=== PATIENT | male | born 1970 | race Hispanic/Latino ===

== ENCOUNTER 2019-04-02 16:16 | Emergency (ER) | payer BC ==
[2019-04-02] MEDS ORDERED: ACETAMINOPHEN 325 MG TABLET ONE (16:56)
[2019-04-02] MEDS ORDERED: IBUPROFEN 400 MG TAB ONE (16:56)
--- NOTE | 2019-04-02 17:20 | RAD REPORT ---
EXAM DESCRIPTION: RAD - Ankle Left 3 View - 04/02/2019 5:04 pm CLINICAL HISTORY: Ankle pain, twisting injury COMPARISON: None. FINDINGS: No fracture, dislocation or periosteal reaction. No joint effusion seen. No joint space na rrowing. Mild lateral soft tissue swelling. IMPRESSION: Mild soft tissue swelling with no fracture.
--- NOTE | 2019-04-02 17:21 | RAD REPORT ---
EXAM DESCRIPTION: RAD - Foot Left 3 View - 04/02/2019 5:04 pm CLINICAL HISTORY: Foot pain, twisting injury COMPARISON: None. FINDINGS: No fracture, dislocation or periosteal reaction. No acute or destructive bony process. Mo derate degenerative change involves the first MTP joint where there is joint space narrowing, scleros is and minimal marginal spurring. No air or foreign body in the soft tissues. IMPRESSION: No fracture or acute finding. 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
--- NOTE | 2019-04-02 17:41 | EDPHYS ---
Physician Documentation [facility] Name: Bob Culp Age: 49 yrs Sex: Male : 1970 Arrival Date: 04/02/2019 Time: 16:19 Bed 30 Private MD: ED Physician Sam Russell HPI: 04/02 16:40 This 49 yrs old Male presents to ER via Ambulatory with complaints of Foot cp Pain. 16:40 The patient presents with pain, that is acute, swelling, tenderness. cp 16:40 The complaints affect the left lateral ankle, lateral aspect of left foot and dorsum of cp left foot. 16:40 Context: resulted from twisting of the extremity, while walking, the patient can fully cp bear weight, the patient is able to ambulate, with mild difficulty. Onset: The symptoms/episode began/occurred 3 day(s) ago. 16:40 Associated signs and symptoms: Pertinent positives: ecchymosis, of the left foot, cp Pertinent negatives calf tenderness, numbness. Historical: - Allergies: 16:23 No Known Allergies; aj - Home Meds: 16:23 valsartan-hydrochlorothiazide 160-12.5 mg oral tab 1 tab once daily [Active]; aj metoprolol tartrate 50 mg Oral tab [Active]; - PMHx: 16:23 Hypertension; aj - PSHx: 16:23 None; aj - Immunization history:: Adult Immunizations up to date. - Social history:: Smoking status: Patient/guardian denies using tobacco. - Ebola Screening: : Patient negative for fever greater than or equal to 101.5 degrees Fahrenheit, and additional compatible Ebola Virus Disease symptoms Patient denies exposure to infectious person Patient denies travel to an Ebola-affected area in the 21 days before illness onset No symptoms or risks identified at this time. ROS: 16:50 Constitutional: Negative for body aches, chills, fever, poor PO intake. cp 16:50 Eyes: Negative for injury, pain, redness, and discharge. cp 16:50 ENT: Negative for drainage from ear(s), ear pain, sore throat, difficulty swallowing, difficulty handling secretions. 16:50 Cardiovascular: Negative for chest pain, palpitations. 16:50 Respiratory: Negative for cough, shortness of breath, wheezing. 16:50 Abdomen/GI: Negative for abdominal pain, nausea, vomiting, and diarrhea. 16:50 MS/extremity: Positive for pain, swelling, tenderness, of the left ankle and left ffot, Negative for deformity, paresthesias. 16:50 Skin: Negative for cellulitis. 16:50 All other systems are negative. Exam: 17:00 Constitutional: The patient appears in no acute distress, alert, awake, well developed, cp well nourished. 17:00 Head/Face: Normocephalic, atraumatic. cp 17:00 Eyes: Periorbital structures: appear normal, Conjunctiva: normal, no exudate, no injection, Lids and lashes: appear normal, bilaterally. 17:00 ENT: External ear(s): are unremarkable, Nose: is normal, Mouth: is normal, Posterior pharynx: Airway: no evidence of obstruction, patent. 17:00 Chest/axilla: Inspection: normal. 17:00 Cardiovascular: Rate: normal. 17:00 Respiratory: the patient does not display signs of respiratory distress, Respirations: normal, no use of accessory muscles, no retractions, no splinting, no tachypnea. 17:00 Abdomen/GI: Inspection: abdomen appears normal. 17:00 Musculoskeletal/extremity: Extremities: grossly normal except: noted in the lateral aspect of left foot and left lateral ankle and dorsum of left foot: ecchymosis, pain, swelling, tenderness, There is no evidence of deformity, Perfusion: the extremity is normally perfused throughout, Sensation intact. Vital Signs: 16:23 BP 108 / 76; Pulse 78; Resp 16; Temp 98.7; Pulse Ox 98% on R/A; Weight 86.18 kg; Height aj 5 ft. 3 in. (160.02 cm); 16:49 BP 112 / 88; Pulse 70; Resp 18; Pulse Ox 96% on R/A; mg2 18:00 BP 110 / 70; Pulse 71; Resp 18; Temp 98; Pulse Ox 100% on R/A; Pain 0/10; mg2 16:23 Body Mass Index 33.66 (86.18 kg, 160.02 cm) Procedures: 17:45 Splinting: Splint applied to left ankle using ankle air cast. applied by nurse. cp Examined by me, post splint application: neurovascular intact, Patient tolerated well. MDM: 16:25 Patient medically screened. cp 16:28 Patient medically screened. [facility] 17:34 Data reviewed: vital signs, nurses notes, radiologic studies, plain films. 04/02 16:33 Order name: XRAY Foot LEFT 3 View; Complete Time: 17:26 cp 04/02 17:26 Interpretation: Reviewed report. 04/02 16:33 Order name: XRAY Ankle LEFT 3 view; Complete Time: 17:26 cp 04/02 17:26 Interpretation: Report reviewed. 04/02 17:30 Order name: Aircast Ankle Splint; Complete Time: 17:53 cp Administered Medications: 16:39 Drug: Tylenol 650 mg Route: PO; mg2 17:53 Follow up: Response: No adverse reaction; Marked relief of symptoms mg2 16:40 Drug: Ibuprofen 800 mg Route: PO; mg2 17:53 Follow up: Response: No adverse reaction; Marked relief of symptoms mg2 Disposition: 04/03 06:20 Co-signature as Attending Physician, Sam Russell MD I agree with the assessment and [facility] plan of care. Disposition: 04/02/19 17:39 Discharged to Home. Impression: Other sprain of left foot, Sprain of unspecified ligament of left ankle. - Condition is Stable. - Discharge Instructions: Ankle Sprain, Foot Sprain. - Prescriptions for Ibuprofen 800 mg Oral Tablet - take 1 tablet by ORAL route every 8 hours As needed take with food; 30 tablet. - Medication Reconciliation Form, Thank You Letter, Antibiotic Education, Prescription Opioid Use form. - Follow up: Private Physician; When: 5 - 6 days; Reason: Worsening of condition. - Problem is new. - Symptoms have improved. Signatures: Dispatcher [employer] Renetta Silva RN RN aj Anderson, Corey, MD MD cha Page, Corey, PA PA cp Gardose, Michele, RN RN mg2 Corrections: (The following items were deleted from the chart) 04/02 18:01 17:39 04/02/2019 17:39 Discharged to Home. Impression: Other sprain of left foot; mg2 Sprain of unspecified ligament of left ankle. Condition is Stable. Forms are Medication Reconciliation Form, Thank You Letter, Antibiotic Education, Prescription Opioid Use. Follow up: Private Physician; When: 5 - 6 days; Reason: Worsening of condition. Problem is new. Symptoms have improved. cp
--- NOTE | 2019-04-02 17:41 | ER ---
Nurse's Notes [facility] Name: Bob Culp Age: 49 yrs Sex: Male : 1970 Arrival Date: 04/02/2019 Time: 16:19 Bed 30 Private MD: Diagnosis: Other sprain of left foot;Sprain of unspecified ligament of left ankle Presentation: 04/02 16:21 Presenting complaint: Patient states: Twisted left foot on Monday. Reports increased aj bruising. Transition of care: patient was not received from another setting of care. Onset of symptoms was March 29, 2019. Risk Assessment: Do you want to hurt yourself or someone else? Patient reports no desire to harm self or others. Initial Sepsis Screen: Does the patient meet any 2 criteria? No. Patient's initial sepsis screen is negative. Does the patient have a suspected source of infection? No. Patient's initial sepsis screen is negative. Care prior to arrival: None. 16:21 Method Of Arrival: Ambulatory 16:21 Acuity: MAGGIE 4 aj Triage Assessment: 16:23 General: Appears in no apparent distress. comfortable, Behavior is calm, cooperative, aj appropriate for age. Pain: Complains of pain in left foot. Neuro: Level of Consciousness is awake, alert, obeys commands, Oriented to person, place, time, situation, Appropriate for age. Respiratory: Airway is patent Respiratory effort is even, unlabored, Respiratory pattern is regular, symmetrical. Derm: Skin is intact, is healthy with good turgor, Skin is pink, warm \T\ dry. normal. Musculoskeletal: Reports pain in left foot. Injury Description: Bruise sustained to left foot. Historical: - Allergies: 16:23 No Known Allergies; aj - Home Meds: 16:23 valsartan-hydrochlorothiazide 160-12.5 mg oral tab 1 tab once daily [Active]; aj metoprolol tartrate 50 mg Oral tab [Active]; - PMHx: 16:23 Hypertension; aj - PSHx: 16:23 None; aj - Immunization history:: Adult Immunizations up to date. - Social history:: Smoking status: Patient/guardian denies using tobacco. - Ebola Screening: : Patient negative for fever greater than or equal to 101.5 degrees Fahrenheit, and additional compatible Ebola Virus Disease symptoms Patient denies exposure to infectious person Patient denies travel to an Ebola-affected area in the 21 days before illness onset No symptoms or risks identified at this time. Screenin:46 Abuse screen: Denies threats or abuse. Denies injuries from another. Nutritional mg2 screening: No deficits noted. Tuberculosis screening: No symptoms or risk factors identified. Fall Risk Fall in past 12 months (25 points). Assessment: 16:43 General: Appears in no apparent distress. comfortable, Behavior is calm, cooperative. mg2 Pain: Complains of pain in left foot Pain does not radiate. Pain currently is 5 out of 10 on a pain scale. Quality of pain is described as aching, Pain began suddenly, 2-3 days ago. Is intermittent. Neuro: Level of Consciousness is awake, alert, obeys commands, Oriented to person, place, time, situation. Cardiovascular: Capillary refill < 3 seconds Patient's skin is warm and dry. Respiratory: Airway is patent Respiratory effort is even, unlabored, Respiratory pattern is regular, symmetrical. GI: No signs and/or symptoms were reported involving the gastrointestinal system. : No signs and/or symptoms were reported regarding the genitourinary system. EENT: No signs and/or symptoms were reported regarding the EENT system. Derm: Skin is intact, is healthy with good turgor, Skin is pink, warm \T\ dry. normal. Musculoskeletal: Circulation, motion, and sensation intact. Capillary refill < 3 seconds, Swelling present in left foot. Injury Description: Bruise sustained to left foot is purple, was sustained 2 days ago. Vital Signs: 16:23 BP 108 / 76; Pulse 78; Resp 16; Temp 98.7; Pulse Ox 98% on R/A; Weight 86.18 kg; Height aj 5 ft. 3 in. (160.02 cm); 16:49 BP 112 / 88; Pulse 70; Resp 18; Pulse Ox 96% on R/A; mg2 18:00 BP 110 / 70; Pulse 71; Resp 18; Temp 98; Pulse Ox 100% on R/A; Pain 0/10; mg2 16:23 Body Mass Index 33.66 (86.18 kg, 160.02 cm) aj ED Course: 16:19 Patient arrived in ED. as 16:22 Triage completed. aj 16:23 Arm band placed on right wrist. Patient placed in an exam room. aj 16:25 Page, Sam, PA is PHCP. cp 16:25 Sam Russell MD is Attending Physician. cp 16:28 Nicho Gold, RN is Primary Nurse. mg2 16:46 No provider procedures requiring assistance completed. Patient did not have IV access mg2 during this emergency room visit. 16:49 Patient has correct armband on for positive identification. Pulse ox on. NIBP on. Door mg2 closed. Pillow given. Ice pack to injury. 17:04 XRAY Foot LEFT 3 View In Process Unspecified. EDMS 17:04 XRAY Ankle LEFT 3 view In Process Unspecified. EDMS 18:00 Air stirrup applied to left ankle. mg2 Administered Medications: 16:39 Drug: Tylenol 650 mg Route: PO; mg2 17:53 Follow up: Response: No adverse reaction; Marked relief of symptoms mg2 16:40 Drug: Ibuprofen 800 mg Route: PO; mg2 17:53 Follow up: Response: No adverse reaction; Marked relief of symptoms mg2 Outcome: 17:39 Discharge ordered by MD. cp 18:01 Discharged to home ambulatory, with friend. mg2 18:01 Condition: stable 18:01 Discharge instructions given to patient, family, Instructed on discharge instructions, follow up and referral plans. medication usage, Demonstrated understanding of instructions, follow-up care, medications, Prescriptions given X 1. 18:01 Patient left the ED. mg2 Signatures: Dispatcher [employer] Renetta Silva, RN RN Keturah Shen as Sam Chase PA PA Nicho Means, RN RN mg2
== END 2019-04-02 18:01 | disposition home or self-care (01) ==
LOC: ER 16:16
DX: S93.602A Unspecified sprain of left foot, initial encounter (principal); S93.402A Sprain of unspecified ligament of left ankle, initial encounter; X50.1XXA Overexertion from prolonged static or awkward postures, initial encounter; I10 Essential (primary) hypertension
CPT/HCPCS: 99284

== ENCOUNTER 2019-06-19 06:45 | Emergency (ER) | payer BC ==
[2019-06-19 07:36] LABS: Basophils % 0.8 % (0-1.3); Hematocrit 43.9 % (39.6-49.0); MPV 8.1 fL (7.6-11.3); RBC Red Blood Cell Count 4.84 M/uL (4.33-5.43)
[2019-06-19 07:51] LABS: Bilirubin Direct 0.3 mg/dL (0-0.2); Bilirubin Total 1.8 mg/dL (0.2-1.0); Potassium 3.1 mmol/L (3.5-5.1); Protein, Total 7.3 g/dL (6.4-8.2)
[2019-06-19] MEDS ORDERED: POTASSIUM CL SA 10 MEQ TAB PO ONE (08:07)
[2019-06-19 08:37] LABS: Urine Blood NEGATIVE (NEG); Urine Glucose NEGATIVE (NEG); Urine Protein NEGATIVE (NEG)
--- NOTE | 2019-06-19 08:46 | RAD REPORT ---
EXAM DESCRIPTION: CTAbdomen Pelvis W Contrast - 06/19/2019 8:32 am CLINICAL HISTORY: Abdominal pain. ABD PAIN COMPARISON: No comparisons TECHNIQUE: Biphasic CT imaging of the abdomen and pelvis was performed with 100 ml non-ionic IV cont rast. All CT scans are performed using dose optimization technique as appropriate and may include automated exposure control or mA/KV adjustment according to patient size. FINDINGS: The lung bases are clear. The liver, spleen, pancreas, adrenal glands and kidneys are within normal limits. No bowel obstruction, free air, free fluid or abscess. Sigmoid diverticulosis coli is present with mi ld jyoti-colonic inflammatory changes. The appendix is normal. No evidence of significant lymphadenop athy. No suspicious bony findings. Moderate fat containing left inguinal hernia. IMPRESSION: Mild early changes of sigmoid acute diverticulitis in the left lower quadrant suspected. No abscess. Moderate fat containing left inguinal hernia.
--- NOTE | 2019-06-19 08:51 | EDPHYS ---
Physician Documentation [facility] Name: Bob Culp Age: 49 yrs Sex: Male : 1970 Arrival Date: 06/19/2019 Time: 06:47 Bed 6 Private MD: ED Physician Bob Jack HPI: 06/19 07:36 This 49 yrs old Male presents to ER via Ambulatory with complaints of jr8 Abdominal Pain. 07:36 Onset: The symptoms/episode began/occurred last week. Severity of pain: At its worst jr8 the pain was moderate. PT reports episodes of lower abd pain and constipation. Takes linzsess at home. Denies N/V/D. Historical: - Allergies: 07:01 No Known Allergies; bb - Home Meds: 07:01 metoprolol tartrate 50 mg Oral tab [Active]; valsartan-hydrochlorothiazide 160-12.5 mg bb Oral tab 1 tab once daily [Active]; Linzess oral oral [Active]; Ativan Oral [Active]; - PMHx: 07:01 Hypertension; Diverticulitis; Anxiety; bb - PSHx: 07:01 colonoscopy; bb - Immunization history:: Adult Immunizations up to date. - Social history:: Smoking status: Patient uses tobacco products, smokes one pack cigarettes per day. Patient uses alcohol, occasionally. Patient/guardian denies using street drugs. - Ebola Screening: : No symptoms or risks identified at this time. ROS: 07:38 Constitutional: Negative for fever, chills, and weight loss, Eyes: Negative for injury, jr8 pain, redness, and discharge, ENT: Negative for injury, pain, and discharge, Neck: Negative for injury, pain, and swelling, Cardiovascular: Negative for chest pain, palpitations, and edema, Respiratory: Negative for shortness of breath, cough, wheezing, and pleuritic chest pain. 07:38 Abdomen/GI: Positive for abdominal pain, Negative for nausea, vomiting, and diarrhea, black/tarry stool, rectal pain, rectal bleeding, bowel incontinence. Exam: 07:38 Constitutional: This is a well developed, well nourished patient who is awake, alert, jr8 and in no acute distress. Head/Face: Normocephalic, atraumatic. Eyes: Pupils equal round and reactive to light, extra-ocular motions intact. Lids and lashes normal. Conjunctiva and sclera are non-icteric and not injected. Cornea within normal limits. Periorbital areas with no swelling, redness, or edema. ENT: Nares patent. No nasal discharge, no septal abnormalities noted. Tympanic membranes are normal and external auditory canals are clear. Oropharynx with no redness, swelling, or masses, exudates, or evidence of obstruction, uvula midline. Mucous membranes moist. Neck: Trachea midline, no thyromegaly or masses palpated, and no cervical lymphadenopathy. Supple, full range of motion without nuchal rigidity, or vertebral point tenderness. No Meningismus. Chest/axilla: Normal chest wall appearance and motion. Nontender with no deformity. No lesions are appreciated. Cardiovascular: Regular rate and rhythm with a normal S1 and S2. No gallops, murmurs, or rubs. Normal PMI, no JVD. No pulse deficits. Respiratory: Lungs have equal breath sounds bilaterally, clear to auscultation and percussion. No rales, rhonchi or wheezes noted. No increased work of breathing, no retractions or nasal flaring. Back: No spinal tenderness. No costovertebral tenderness. Full range of motion. Skin: Warm, dry with normal turgor. Normal color with no rashes, no lesions, and no evidence of cellulitis. 07:38 Abdomen/GI: Inspection: abdomen appears normal, Bowel sounds: normal, in all quadrants, Palpation: soft, in all quadrants, mild abdominal tenderness, in the suprapubic area, Indicators: McBurney's point is not tender, Shen's sign is negative, Rovsing's sign is negative, Obturator sign is negative, Psoas sign is negative. Vital Signs: 07:01 BP 110 / 80; Pulse 96; Resp 16 S; Temp 98.7(O); Pulse Ox 98% on R/A; Weight 92.99 kg bb (R); Height 5 ft. 3 in. (160.02 cm) (R); Pain 5/10; 09:09 BP 132 / 76; Pulse 90; Resp 16; Temp 98.4; Pulse Ox 99% on R/A; Pain 4/10; ch 07:01 Body Mass Index 36.31 (92.99 kg, 160.02 cm) bb MDM: 06:50 Patient medically screened. jr8 08:49 Data reviewed: vital signs, nurses notes, lab test result(s), radiologic studies, CT jr8 scan. Data interpreted: Pulse oximetry: on room air is 98 %. Interpretation: normal. 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 06/19 07:07 Order name: Basic Metabolic Panel; Complete Time: 07:53 8 06/19 07:07 Order name: CBC with Diff; Complete Time: 07:50 8 06/19 07:07 Order name: Creatinine for Radiology; Complete Time: 07:50 jr8 06/19 07:07 Order name: Hepatic Function; Complete Time: 07:53 jr8 06/19 07:07 Order name: Lipase; Complete Time: 07:53 jr8 06/19 08:20 Order name: Urine Dipstick--Ancillary (enter results); Complete Time: 08:41 gm 06/19 07:07 Order name: IV Saline Lock; Complete Time: 07:32 jr8 06/19 07:07 Order name: Labs collected and sent; Complete Time: 07:32 8 06/19 07:57 Order name: CT Abd/Pelvis - IV Contrast Only; Complete Time: 08:49 jr8 Administered Medications: 08:10 Drug: Potassium Chloride 40 mEq Route: PO; tw2 09:05 Follow up: Response: No adverse reaction tw2 09:08 Drug: [place] (7.5 mg-325 mg) 1 tabs Route: PO; 09:08 Follow up: Response: No adverse reaction Disposition: 06/20 07:09 Co-signature as Attending Physician, Bob Jack MD Available for consultation at ps1 all times . Disposition: 06/19/19 08:50 Discharged to Home. Impression: Diverticulitis of large intestine without perforation or abscess without bleeding. - Condition is Stable. - Discharge Instructions: Diverticulitis. - Prescriptions for Cipro 500 mg Oral Tablet - take 1 tablet by ORAL route every 12 hours for 10 days; 20 tablet. Flagyl 500 mg Oral Tablet - take 1 tablet by ORAL route every 6 hours for 10 days; 40 tablet. Tylenol- Codeine #3 300-30 mg Oral Tablet - take 2 tablets by ORAL route every 6 hours As needed; 12 tablet. Zofran 4 mg Oral Tablet - take 1 tablet by ORAL route every 12 hours As needed; 20 tablet. - Medication Reconciliation Form, Thank You Letter, Antibiotic Education, Prescription Opioid Use, Work release form form. - Follow up: Ric Higgins MD; When: 7 - 10 days; Reason: Recheck today's complaints, Continuance of care, Re-evaluation by your physician. - Problem is new. - Symptoms have improved. Signatures: Dispatcher [employer] EDMS Clementina Castaneda, RN RN Deidra Piña RN RN bb Hernando Joseph PA PA jr8 Bee Bhatt RN RN tw2 Bob Jack MD MD ps1 Corrections: (The following items were deleted from the chart) 06/19 09:10 08:50 06/19/2019 08:50 Discharged to Home. Impression: Diverticulitis of large ch intestine without perforation or abscess without bleeding. Condition is Stable. Forms are Work release form, Medication Reconciliation Form, Thank You Letter, Antibiotic Education, Prescription Opioid Use. Follow up: Ric Higgins; When: 7 - 10 days; Reason: Recheck today's complaints, Continuance of care, Re-evaluation by your physician. Problem is new. Symptoms have improved. jr8
--- NOTE | 2019-06-19 08:51 | ER ---
Nurse's Notes [facility] Name: Bob Culp Age: 49 yrs Sex: Male : 1970 Arrival Date: 06/19/2019 Time: 06:47 Bed 6 Private MD: Diagnosis: Diverticulitis of large intestine without perforation or abscess without bleeding Presentation: 06/19 06:58 Presenting complaint: Patient states: he started having abdominal pain on Monday pt bb has hx of diverticulitis and had a colonoscopy about [address] Higgins who removed a benign polyp pt denies vomiting or diarrhea. Transition of care: patient was not received from another setting of care. Onset of symptoms was June 15, 2019. Risk Assessment: Do you want to hurt yourself or someone else? Patient reports no desire to harm self or others. Initial Sepsis Screen: Does the patient meet any 2 criteria? No. Patient's initial sepsis screen is negative. Does the patient have a suspected source of infection? No. Patient's initial sepsis screen is negative. Care prior to arrival: None. 06:58 Method Of Arrival: Ambulatory bb 06:58 Acuity: MAGGIE 3 bb Historical: - Allergies: 07:01 No Known Allergies; bb - Home Meds: 07:01 metoprolol tartrate 50 mg Oral tab [Active]; valsartan-hydrochlorothiazide 160-12.5 mg bb Oral tab 1 tab once daily [Active]; Linzess oral oral [Active]; Ativan Oral [Active]; - PMHx: 07:01 Hypertension; Diverticulitis; Anxiety; bb - PSHx: 07:01 colonoscopy; bb - Immunization history:: Adult Immunizations up to date. - Social history:: Smoking status: Patient uses tobacco products, smokes one pack cigarettes per day. Patient uses alcohol, occasionally. Patient/guardian denies using street drugs. - Ebola Screening: : No symptoms or risks identified at this time. Screenin:15 Abuse screen: Denies threats or abuse. Nutritional screening: No deficits noted. tw2 Tuberculosis screening: No symptoms or risk factors identified. Fall Risk None identified. Assessment: 07:30 General: Appears in no apparent distress. comfortable, Behavior is calm, cooperative, ch appropriate for age. Pain: Complains of pain in right lower quadrant and left lower quadrant Pain currently is 5 out of 10 on a pain scale. Pain began gradually. Neuro: No deficits noted. Respiratory: Airway is patent Respiratory effort is even, unlabored. GI: Bowel sounds present X 4 quads. Abd is soft and non tender X 4 quads. Reports lower abdominal pain, cramping, diarrhea, nausea. : No signs and/or symptoms were reported regarding the genitourinary system. Derm: Skin is pink, warm \T\ dry. 08:34 Reassessment: Patient appears in no apparent distress at this time. No changes from previously documented assessment. Patient and/or family updated on plan of care and expected duration. Pain level reassessed. Patient is alert, oriented x 3, equal unlabored respirations, skin warm/dry/pink. pt returned from ct. awaiting results now. 09:09 Reassessment: Patient appears in no apparent distress at this time. No changes from previously documented assessment. Patient and/or family updated on plan of care and expected duration. Pain level reassessed. Patient is alert, oriented x 3, equal unlabored respirations, skin warm/dry/pink. Vital Signs: 07:01 BP 110 / 80; Pulse 96; Resp 16 S; Temp 98.7(O); Pulse Ox 98% on R/A; Weight 92.99 kg bb (R); Height 5 ft. 3 in. (160.02 cm) (R); Pain 5/10; 09:09 BP 132 / 76; Pulse 90; Resp 16; Temp 98.4; Pulse Ox 99% on R/A; Pain 4/10; ch 07:01 Body Mass Index 36.31 (92.99 kg, 160.02 cm) ED Course: 06:47 Patient arrived in ED. ds1 06:50 Hernando Joseph PA is PHCP. jr8 06:50 Bob Jack MD is Attending Physician. jr8 06:59 Triage completed. bb 07:00 Bed in low position. Call light in reach. Adult w/ patient. tw2 07:01 Arm band placed on Patient placed in an exam room, on a stretcher, on pulse oximetry. bb Family accompanied patient. 07:04 Clementina Castaneda, JESSICA is Primary Nurse. ch 07:30 No apparent distress. Resting quietly. ch 07:30 Pulse ox on. NIBP on. Warm blanket given. ch 07:30 No provider procedures requiring assistance completed. Inserted saline lock: 18 gauge ch in right forearm, using aseptic technique. Blood collected. 08:17 Urine collected: clean catch specimen, clear, winnie colored. jb1 08:32 CT Abd/Pelvis - IV Contrast Only In Process Unspecified. EDMS 08:50 Ric Higgins MD is Referral Physician. jr8 09:09 No apparent distress. Resting quietly. ch 09:09 IV discontinued, intact, bleeding controlled, No redness/swelling at site. Pressure ch dressing applied. Administered Medications: 08:10 Drug: Potassium Chloride 40 mEq Route: PO; tw2 09:05 Follow up: Response: No adverse reaction tw2 09:08 Drug: Monroe (7.5 mg-325 mg) 1 tabs Route: PO; ch 09:08 Follow up: Response: No adverse reaction ch Outcome: 08:50 Discharge ordered by . jr8 09:09 Discharged to home ambulatory, with family. 09:09 Condition: stable 09:09 Discharge instructions given to patient, Instructed on discharge instructions, follow up and referral plans. no drinking with medication, no driving heavy equipment, medication usage, Demonstrated understanding of instructions, follow-up care, medications, take pro biotic Prescriptions given X 4. 09:10 Patient left the ED. Signatures: Dispatcher [employer] GUILLERMOAK Stef Sosa jb1 Clementina Castaneda, RN RN Josie Sanon ds1 Deidra Carvalho RN RN bb Roszak, Josh, PA PA jr8 Bee Bhatt RN RN tw2
[2019-06-19] MEDS ORDERED: HYDROCODONE/APAP 7.5/325 MG TAB ONE (09:03)
[2019-06-19 09:20] VITALS: BP 132/76; TEMP 98.4; O2SAT 99
== END 2019-06-19 09:10 | disposition home or self-care (01) ==
LOC: ER 06:45
DX: K57.32 Diverticulitis of large intestine without perforation or abscess without bleeding (principal); I10 Essential (primary) hypertension; F41.9 Anxiety disorder, unspecified; F17.210 Nicotine dependence, cigarettes, uncomplicated
CPT/HCPCS: 85025; 80048; 36415; 80076; 81003; 83690; 74177; Q9967; 99284

== ENCOUNTER 2020-06-16 08:45 | Emergency (ER) | payer BC ==
[2020-06-16] MEDS ORDERED: NA CHLORIDE 0.9% 1,000 ML ONE (09:27)
[2020-06-16 09:45] LABS: Absolute Lymphocytes (CBC) 0.8 K/uL (0.7-4.9); Basophils % 0.6 % (0-1.3); Hematocrit 42.3 % (39.6-49.0); Lymphocytes % 8.3 % (15.3-44.8)
[2020-06-16 09:58] LABS: Potassium 3.3 mmol/L (3.5-5.1)
[2020-06-16 09:59] LABS: Albumin 3.4 g/dL (3.4-5.0); Bilirubin Direct 0.2 mg/dL (0-0.2); Bilirubin Total 0.7 mg/dL (0.2-1.0); Protein, Total 7.8 g/dL (6.4-8.2)
--- NOTE | 2020-06-16 10:38 | RAD REPORT ---
EXAM DESCRIPTION: CT - Abdomen Pelvis W Contrast - 06/16/2020 10:15 am CLINICAL HISTORY: Abdominal pain COMPARISON: 2018 TECHNIQUE: Computed axial tomography of the abdomen pelvis was obtained. 100 cc Isovue-300 was admin istered intravenously. Oral contrast was not requested which limits evaluation of bowel. All CT scans are performed using dose optimization technique as appropriate and may include automated exposure control or mA/KV adjustment according to patient size. FINDINGS: The liver, spleen, pancreas, adrenal and kidneys appear unremarkable. Diverticula stem from the colon. Moderate stranding adjacent to the sigmoid colon. 3 centimeter fluid collection lies anterior to the proximal sigmoid colon. It contains a couple of air bubbles Normal appendix Small to moderate left inguinal hernia contains fat Minimal posterior subluxation L5 on S1 IMPRESSION: Sigmoid diverticulitis containing a micro perforation. 3 centimeter fluid collection adj acent to the sigmoid compatible with early abscess
--- NOTE | 2020-06-16 11:11 | ER ---
Nurse's Notes [facility] Name: Bob Culp Age: 50 yrs Sex: Male : 1970 Arrival Date: 06/16/2020 Time: 08:49 Bed 5 Private MD: Diagnosis: Diverticulitis of large intestine with perforation and abscess without bleeding Presentation: 06/16 09:00 Chief complaint: Lower abdominal pain, unrelieved by MOM x 1 week. Coronavirus screen: hb At this time, the client does not indicate any symptoms associated with coronavirus-19. Ebola Screen: No symptoms or risks identified at this time. Initial Sepsis Screen: Does the patient meet any 2 criteria? No. Patient's initial sepsis screen is negative. Does the patient have a suspected source of infection? No. Patient's initial sepsis screen is negative. Risk Assessment: Do you want to hurt yourself or someone else? Patient reports no desire to harm self or others. Onset of symptoms was June 11, 2020. 09:00 Method Of Arrival: Ambulatory hb 09:00 Acuity: MAGGIE 3 hb Triage Assessment: 09:09 General: Appears in no apparent distress. Behavior is calm, cooperative. Pain: Pain hb currently is 3 out of 10 on a pain scale. EENT: No signs and/or symptoms were reported regarding the EENT system. Neuro: Level of Consciousness is awake, alert, obeys commands, Oriented to person, place, time, situation. Cardiovascular: Capillary refill < 3 seconds Patient's skin is warm and dry. Respiratory: Respiratory effort is even, unlabored, Respiratory pattern is regular, symmetrical. GI: Reports lower abdominal pain. : No signs and/or symptoms were reported regarding the genitourinary system. Derm: Skin is pink, warm \T\ dry. Musculoskeletal: No signs and/or symptoms reported regarding the musculoskeletal system. Historical: - Allergies: 09:09 No Known Allergies; hb - Immunization history:: Adult Immunizations up to date. - Social history:: Smoking status: Patient reports the use of cigarette tobacco products, smokes one pack cigarettes per day. - Family history:: not pertinent. - Hospitalizations: : No recent hospitalization is reported. Screenin:12 Abuse screen: Denies threats or abuse. Denies injuries from another. Nutritional hb screening: No deficits noted. Tuberculosis screening: No symptoms or risk factors identified. Fall Risk None identified. Assessment: 10:00 Reassessment: Patient appears in no apparent distress at this time. Patient and/or hb family updated on plan of care and expected duration. Pain level reassessed. Patient is alert, oriented x 3, equal unlabored respirations, skin warm/dry/pink. 11:00 Reassessment: Patient appears in no apparent distress at this time. Patient and/or hb family updated on plan of care and expected duration. Pain level reassessed. Patient is alert, oriented x 3, equal unlabored respirations, skin warm/dry/pink. 11:53 Reassessment: Patient appears in no apparent distress at this time. Patient and/or hb family updated on plan of care and expected duration. Pain level reassessed. Patient is alert, oriented x 3, equal unlabored respirations, skin warm/dry/pink. Vital Signs: 09:00 BP 128 / 88; Pulse 73; Resp 16; Temp 98.2(O); Pulse Ox 98% on R/A; Weight 85.28 kg; hb Height 5 ft. 3 in. (160.02 cm); Pain 3/10; 11:53 BP 142 / 81; Pulse 75; Resp 16; Pulse Ox 100% on R/A; hb 09:00 Body Mass Index 33.30 (85.28 kg, 160.02 cm) hb ED Course: 08:49 Patient arrived in ED. mr 08:59 Juan Carlos Faustin MD is Attending Physician. rn 09:00 Ami Noriega, JESSICA is Primary Nurse. hb 09:09 Triage completed. hb 09:09 Arm band placed on. hb 09:12 Patient has correct armband on for positive identification. Bed in low position. Call hb light in reach. 09:21 Inserted saline lock: 20 gauge in right forearm, using aseptic technique. Blood hb collected. 10:15 CT Abd/Pelvis - IV Contrast Only In Process Unspecified. EDMS 11:42 initiated transfer to [facility], admin approval given by Rosa. bd Administered Medications: 09:23 Drug: NS 0.9% 1000 ml Route: IV; Rate: 1000 ml; Site: right forearm; hb 10:45 Follow up: Response: No adverse reaction; IV Status: Completed infusion; IV Intake: hb 1000ml 10:11 Not Given (Duplicate Order): Lactated Ringers Solution 1000 ml IV at 200 ml/hr rn continuous 11:50 Drug: Zosyn 3.375 grams Route: IVPB; Infused Over: 60 mins; Site: right forearm; hb Intake: 10:45 IV: 1000ml; Total: 1000ml. hb Outcome: 11:10 ER care complete, transfer ordered by . rn 14:50 Patient left the ED. hb Signatures: Dispatcher [employer] EDMS Marine Pérez Mary mr Juan Carlos Faustin MD MD rn Baxter, Heather, RN RN hb Corrections: (The following items were deleted from the chart) 11:53 09:12 General: see triage assessment. hb hb
--- NOTE | 2020-06-16 11:11 | EDPHYS ---
Physician Documentation [facility] Name: Bob Culp Age: 50 yrs Sex: Male : 1970 Arrival Date: 06/16/2020 Time: 08:49 Bed 5 Private MD: ED Physician Juan Carlos Faustin HPI: 06/16 09:16 This 50 yrs old Male presents to ER via Ambulatory with complaints of rn Abdominal Pain. 09:16 The patient presents with abdominal pain in the left lower quadrant. Onset: The rn symptoms/episode began/occurred 1 week(s) ago. The symptoms do not radiate. Associated signs and symptoms: Pertinent positives: diarrhea, Pertinent negatives: anorexia, blood in stools, dysuria, fever, shortness of breath. The symptoms are described as crampy. Modifying factors: The symptoms are alleviated by nothing, the symptoms are aggravated by touching the area. Severity of pain: At its worst the pain was mild in the emergency department the pain is unchanged. The patient has experienced a previous episode. Reports LLQ pain, began 1 week ago, changed diet and not resolving, similar to when had diverticulitis in past, called Dr. Higgins and told to come to ER. No blood in stool. No fever. No vomiting.. Historical: - Allergies: 09:09 No Known Allergies; hb - Immunization history:: Adult Immunizations up to date. - Social history:: Smoking status: Patient reports the use of cigarette tobacco products, smokes one pack cigarettes per day. - Family history:: not pertinent. - Hospitalizations: : No recent hospitalization is reported. ROS: 09:16 Constitutional: Negative for fever, chills, and weight loss, Eyes: Negative for injury, rn pain, redness, and discharge, Cardiovascular: Negative for chest pain, palpitations, and edema, Respiratory: Negative for shortness of breath, cough, wheezing, and pleuritic chest pain, Abdomen/GI: Negative for nausea, vomiting, and constipation MS/Extremity: Negative for injury and deformity, Skin: Negative for injury, rash, and discoloration, Neuro: Negative for headache, weakness, numbness, tingling, and seizure. Exam: 09:16 Constitutional: This is a well developed, well nourished patient who is awake, alert, rn and in no acute distress. Head/Face: Normocephalic, atraumatic. Cardiovascular: Regular rate and rhythm. No pulse deficits. Respiratory: No increased work of breathing, no retractions or nasal flaring. Abdomen/GI: soft, mild suprapubic and LLQ tenderness, no rebound/masses Skin: Warm, dry MS/ Extremity: Pulses equal, no cyanosis. Neurovascular intact. Full, normal range of motion. Equal circumference. Neuro: Awake and alert, GCS 15, oriented to person, place, time, and situation. Vital Signs: 09:00 BP 128 / 88; Pulse 73; Resp 16; Temp 98.2(O); Pulse Ox 98% on R/A; Weight 85.28 kg; hb Height 5 ft. 3 in. (160.02 cm); Pain 3/10; 11:53 BP 142 / 81; Pulse 75; Resp 16; Pulse Ox 100% on R/A; hb 09:00 Body Mass Index 33.30 (85.28 kg, 160.02 cm) hb MDM: 08:59 Patient medically screened. rn 11:08 Differential diagnosis: diverticulitis, non-specific abd pain, diverticulitis with rn perforation. Data reviewed: vital signs, nurses notes, lab test result(s), radiologic studies, CT scan, and as a result, I will admit patient. Counseling: I had a detailed discussion with the patient and/or guardian regarding: the historical points, exam findings, and any diagnostic results supporting the discharge/admit diagnosis, lab results, radiology results, the need to transfer to another facility, for higher level of care. ED course: Consulted with Dr. Sullivan, requests patient transferred for colorectal surgery, he has spoken with Dr. Norton, who agreed to take patient. . 06/16 09:07 Order name: Basic Metabolic Panel; Complete Time: 10: rn 06/16 09:07 Order name: CBC with Diff; Complete Time: 11:15 rn 06/16 09:07 Order name: Hepatic Function; Complete Time: : rn 06/16 09:07 Order name: Lipase; Complete Time: 10: rn 06/16 11:13 Order name: Manual Differential; Complete Time: 11:15 EDMS 06/16 09:07 Order name: IV Saline Lock; Complete Time: :23 rn 06/16 09:07 Order name: Labs collected and sent; Complete Time: :23 rn 06/16 09:07 Order name: CT Abd/Pelvis - IV Contrast Only; Complete Time: 10:47 rn 06/16 12:02 Order name: SARS-COV-2 RT PCR EDMS Administered Medications: Drug: NS 0.9% 1000 ml Route: IV; Rate: 1000 ml; Site: right forearm; hb 10:45 Follow up: Response: No adverse reaction; IV Status: Completed infusion; IV Intake: hb 1000ml 10:11 Not Given (Duplicate Order): Lactated Ringers Solution 1000 ml IV at 200 ml/hr rn continuous 11:50 Drug: Zosyn 3.375 grams Route: IVPB; Infused Over: 60 mins; Site: right forearm; hb Disposition: 06/16/20 11:10 Transfer ordered to [facility]. Diagnosis is Diverticulitis of large intestine with perforation and abscess without bleeding. - Reason for transfer: Higher level of care. - Accepting physician is Dr. Norton. - Condition is Stable. - Problem is new. - Symptoms have improved. Signatures: Dispatcher [employer] EDNM Juan Carlos Faustin MD MD rn Baxter, Heather, RN RN Corrections: (The following items were deleted from the chart) 12:02 11:20 CORONAVIRUS+MR.LAB.BRZ ordered. EDNM EDMS 14:50 11:10 06/16/2020 11:10 Transfer ordered to [facility]. Diagnosis is hb Diverticulitis of large intestine with perforation and abscess without bleeding. Reason for transfer: Higher level of care. Accepting physician is Dr. Norton. Condition is Stable. Problem is new. Symptoms have improved. rn
[2020-06-16 11:13] LABS: Blood Morphology Comment NOT SEEN (NOT SEEN); Platelet Estimate ADEQ
[2020-06-16] MEDS ORDERED: PIPER/TAZO/NS 3.375gm 3.375 GM/100 ML BAG ONE (11:55)
[2020-06-16 15:17] VITALS: TEMP 98.2
[2020-06-16 15:19] VITALS: BP 142/81; O2SAT 100
--- NOTE | 2020-06-16 19:27 | CON ---
Date of Consultation: 06/16/2020 Reason For Service: Diverticulitis with microperforation and abscess. History Of Present Illness: This is a case of a 50-year-old patient comes to us with more than a wee k and a half history of abdominal pain, left lower quadrant associated with diarrhea, sometimes anore isabel. He has been trying to do on his own, but today the pain got worse. He decided to come to the [facility], found to have complex diverticulitis with microperforation and abscess. Surgical consult was obta ined. He states he had a colonoscopy done about 3 years ago with some polyps found and then 3 years before that also with polyps found by Dr. Higgins, but no cancer seen. He was told he has diverticulu m. His Dad has history of diverticulitis to the point that he also require colostomy and surgical in tervention. Allergies: NONE. Social History: He smokes about a pack a day. He does not drink alcohol. Family History: As above. Past Medical Problems: None. Review of Systems: No fever. No chills. No shortness of breath and gastrointestinal as above. Otherwise 10 points oth erwise unremarkable. Physical Examination: General: Patient awake and alert. Eyes: Pupils anicteric. Neck: Supple. Chest: Clear. Abdomen: Left lower quadrant tenderness with guarding. No rebound. Rectal and pelvic: Deferred. Extremity: Good capillary refill. Laboratory Data: Blood work shows WBC count of 9.4 with hemoglobin of 14.8. Imaging: CAT scan of the abdomen and pelvis shows diverticulitis with a perforation and abscess. Assessment: This is 50-year-old patient with a diverticulitis and perforation abscess. I discussed with him surgical options for emergent colon resection with ostomy and then tried to reverse in the f uture to elective colon resection if the inflammation and abscess resolve. I discussed with them due to the complexity of this case and he has been having pain for some time. I discussed the case with the colorectal surgeons and higher level of care and they prefer patient to be transferred at [facility] to their institution for treatment since they may have to do emergent surgery if he does not im prove in the next 24 to 48 hours and they want the patient there. I discussed with the patient the p ros and cons of that decision, he prefer also to be in [place], so I contacted Dr. Norton, Colorectal, and he will transfer the patient to that institution. ANISHA/TERESITA Voice ID: [id number] Report ID: [id number]
--- OUTSIDE RECORDS SUMMARY | 2020-06-18 11:31 | XMS REPORT | Clinical Summary ---
:1970 Author Organization [facility] Address [address] [place] [address] Care Team Providers Name Role Phone Asked, No Pcp Primary Care Provider Unavailable Allergies No Known Active Allergies Medications Medication Sig Dispensed Refills Start End Status Date Date valsartan 160 MG Take 1 tablet 0 Suspended tablet 1 tablet, by mouth daily. hydroCHLOROthiazide 25 MG tablet 0.5 tablet metoprolol succinate Take 50 mg by 0 Suspended XL (TOPROL-XL) 50 mg mouth daily. 24 hr tablet LORAZepam (ATIVAN) 0.5 Take 0.5 mg by 0 Discontinued MG tablet mouth as needed 020 (Med List for anxiety. Cleanup ) linaCLOtide (LINZESS) Take 290 mcg by 0 Suspended 290 mcg capsule mouth daily before breakfast. Patient has not taken in over a month due to COST of medication. acetaminophen Take 1,000 mg 0 Evans spended (TYLENOL) 500 MG by mouth daily tablet as needed for mild pain (Only has taken consistently for past week due to increasing pain.). NON FORMULARY Take 1 Bag by 0 Evans spended mouth daily. Calming Blends herbal tea blend. Usually takes after work to help relax. 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 Encounters Date Type Specialty Care Team Description 06/16/2020 Hospital Encounter General Surgery Houston Norton MD after 06/17/2019 Medical History Medical History Date Comments Hypertension Diverticulitis of colon Anxiety Family History Medical History Relation Name Comments Diabetes Brother Cancer Father Diabetes Father Diverticulosis Father Anxiety disorder Mother Dementia Mother Relation Name Status Comments Brother Father Mother Social History Tobacco Use Types Packs/Day Years Used Date Current Every Day Smoker 0.5 34 Smokeless Tobacco: Current User Tobacco Cessation: Ready to Quit: No; Co unseling Given: Yes Alcohol Use Drinks/Week oz/Week Comments Yes occasionally Sex Assigned at Date Recorded Not on file Last Filed Vital Signs Vital Sign Reading Time Taken Comments Blood Pressure 115/72 06/18/2020 11:14 AM CDT Pulse 9 06/18/2020 11:14 AM CDT Temperature 37.1 C (98.7 F) 06/18/2020 11:14 AM CDT Respiratory Rate 18 06/18/2020 11:14 AM CDT Oxygen Saturation 98% 06/18/2020 11:14 AM CDT Inhaled Oxygen Concentration - - Weight 85.5 kg (188 lb 8 oz) 06/16/2020 7:41 PM CDT Height 160 cm (5' 3") 06/16/2020 7:41 PM CDT Body Mass Index 33.39 06/16/2020 7:41 PM CDT Plan of Treatment Health Maintenance Due Date Last Done Comments COLONOSCOPY SCREENING 02/03/2018 SHINGLES VACCINES (#1) 02/03/2018 INFLUENZA VACCINE 04/11/2020 Procedures The patient is currently admitted. The information in this section might not be complete until the patient is discharged. Procedure Name Priority Date/Time Associated Comments Diagnosis CBC WITH PLATELET AND Routine 06/18/2020 4:15 Re sults for this DIFFERENTIAL AM CDT procedure are i n the results section. ESTIMATED GFR Routine 06/18/2020 4:00 Results fo r this AM CDT procedure are i n the results section. PHOSPHORUS LEVEL Routine 06/18/2020 4:00 Results for this AM CDT procedure are i n the results section. MAGNESIUM LEVEL Routine 06/18/2020 4:00 Results for this AM CDT procedure are i n the results section. BASIC METABOLIC PANEL Routine 06/18/2020 4:00 Re sults for this AM CDT procedure are i n the results section. HC COMPLETE BLD COUNT Routine 06/17/2020 4:30 Re sults for this W/AUTO DIFF AM CDT procedure are i n the results section. ESTIMATED GFR Routine 06/17/2020 4:00 Results fo r this AM CDT procedure are i n the results section. PHOSPHORUS LEVEL Routine 06/17/2020 4:00 Results for this AM CDT procedure are i n the results section. MAGNESIUM LEVEL Routine 06/17/2020 4:00 Results for this AM CDT procedure are i n the results section. BASIC METABOLIC PANEL Routine 06/17/2020 4:00 Re sults for this AM CDT procedure are i n the results section. BLOOD CULTURE, Routine 06/16/2020 9:00 AEROBIC & ANAEROBIC PM CDT BLOOD CULTURE, Routine 06/16/2020 9:00 AEROBIC & ANAEROBIC PM CDT COVID-19 QUALITATIVE Routine 06/16/2020 6:30 Res ults for this PCR PM CDT procedure are i n the results section. PROTHROMBIN TIME WITH Routine 06/16/2020 6:03 Re sults for this INR PM CDT procedure are i n the results section. HC COMPLETE BLD COUNT Routine 06/16/2020 6:03 Re sults for this W/AUTO DIFF PM CDT procedure are i n the results section. ESTIMATED GFR Routine 06/16/2020 5:16 Results fo r this PM CDT procedure are i n the results section. BASIC METABOLIC PANEL Routine 06/16/2020 5:16 Re sults for this PM CDT procedure are i n the results section. CT ABD/PELVIC Routine 06/16/2020 10:13 Results fo r this EXTERNAL STUDY AM CDT procedure are in the results section. after 06/17/2019 Results CBC with platelet and differential (06/18/2020 4:15 AM CDT)Only the most recent of3 resultswithin the time period is included. WBC 5.72 4.50 - 11.00 [facility] k/uL [facility] RBC 4.04 (L) 4.40 - 6.00 [facility] HGB 12.5 (L) 14.0 - 18.0 [facility] g/dL [facility] HCT 37.0 (L) 41.0 - 51.0 % [facility] MCV 91.6 82.0 - 100.0 [facility] MCH 30.9 27.0 - 34.0 pg [facility] MCHC 33.8 31.0 - 37.0 [facility] gdL [facility] RDW - SD 43.4 37.0 - 55.0 fL [facility] MPV 9.5 8.8 - 13.2 [facility] Platelet count 215 150 - 400 k/uL [facility] Nucleated RBC 0.00 /100 WBC [facility] Neutrophils 67.3 39.0 - 69.0 % [facility] Lymphocytes 21.9 (L) 25.0 - 45.0 % [facility] Monocytes 7.9 0.0 - 10.0 % [facility] Eosinophils 2.1 0.0 - 5.0 % [facility] Basophils 0.3 0.0 - 1.0 % [facility] Immature granulocytes 0.5Comment: 0.0 - 1.0 % [facility] "Immature HOSPITAL granulocytes" (promyelocytes , myelocytes, metamyelocytes ) Specimen Blood Performing Organization Address City/[facility] Phon e Number [facility] DEPARTMENT OF PATHOLOGY AND [address] [place] [id number] Estimated GFR (06/18/2020 4:00 AM CDT)Only the most recent of3 resultswithin the time period is included. Estimated GFR >=90 mL/min/1.73 [facility] Comment: m2 HOSPITAL Catergory Units Interpretation G1 >=90 Normal or high G2 60-89 Mildly decreased G3a 45-59 Mildly to moderately decreas ed G3b 30-44 Moderately to severely decre ased G4 15-29 Severely decreased G5 <15 Kidney failure The eGFR was calculated using the Chronic Kidney Disea se Epidemiology Collaboration (CKD-EPI) equation. Interpretation is based on recommendations of the National Kidney Foundation-Kidney Disease Outcomes Pete lity Initiative (NKF-KDOQI) published in 2014. Specimen Performing Organization Address [facility] Phon e Number [facility] DEPARTMENT OF PATHOLOGY AND [address] [place] [address] [address] Phosphorus level (06/18/2020 4:00 AM CDT)Only the most recent of2 resultswithin the time period is included. Pathologist Sig nature Phosphorus 2.7 2.4 - 4.5 mg/dL [facility] Specimen Blood Performing Organization Address City/[facility]/ZIP Code Phon e Number [facility] DEPARTMENT OF PATHOLOGY AND [address] [place] [phone] Magnesium level (06/18/2020 4:00 AM CDT)Only the most recent of2 resultswithin the time period is included. Pathologist Sig nature Magnesium 2.1 1.6 - 2.6 mg/dL [facility] Specimen Blood Performing Organization Address [facility] Phon e Number [facility] DEPARTMENT OF PATHOLOGY AND [address] [place] [address] [address] Basic metabolic panel (06/18/2020 4:00 AM CDT)Only the most recent of3 results within the time period is included. [facility] nature Sodium 142 135 - 148 mEq/L [facility] Potassium 3.7 3.5 - 5.0 mEq/L [facility] Chloride 106 98 - 112 mEq/L [facility] CO2 23 (L) 24 - 31 mEq/L [facility] Anion gap 13@ANIO 7 - 15 mEq/L [facility] BUN 9 6 - 20 mg/dL [facility] Creatinine 0.96 0.70 - 1.20 mg/dL [facility] JUDY Glucose 93 65 - 99 mg/dL [facility] Calcium 8.7 8.3 - 10.2 mg/dL [facility] Specimen Blood Performing Organization Address [facility] Phon e Number [facility] DEPARTMENT OF PATHOLOGY AND [address] [place] [address] 0 [place] [phone] COVID-19 qualitative PCR (06/16/2020 6:30 PM CDT) Pathologist [facility] Interpretation Negative results do not prec lude 2019-nCoV infection and should not be used as the sole basis for treatment or other patient management decisions. Negative results must be combined with clinical observations, patient history, and epidemiological [place] information. [facility] COVID-19 qualitative Not-Detected Not-Detecte [place] PCR result d [facility] COVID-19 qualitative See link below for [place] PCR PDF Lab [facility] ReportComment: Case HOSPITAL Number: [id number] Specimen Nasal swab Performing Organization Address City/[facility] Phon e Number [facility] DEPARTMENT OF PATHOLOGY AND [address] [place] [address] 0 [place] [phone] [facility] Prothrombin time with INR (06/16/2020 6:03 PM CDT) [facility] Prothrombin time 13.6 11.5 - 14.5 [place] sec [facility] INR 1.0 [place] Comment: [facility] International Normalized Ratio (INR) is a [facility] HOSPITAL monitoring tool for patients who are stable on oral anticoagulant therapy. An INR of 2.0-3.0 is suggested for deep vein thrombosis/pulmonary embolism. Specimen Blood Performing Organization Address City/State/ZIP Code Phon e Number [facility] DEPARTMENT OF PATHOLOGY AND [address] [place], [place] [address] GENOMIC MEDICINE [facility] [address] [place] [address] CT Abd/Pelvic External Study (06/16/2020 10:13 AM CDT) Specimen Narrative Performed At This exam was not acquired at a [facility] facility and has not been [facility] interpreted by a [facility] Provider. T he exam was imported into our imaging system. Performing Organization Address City/[facility] Phon e Number [facility] [address] [place] [address] after 06/17/2019 Advance Directives For more information, please contact: [phone] Type Date Recorded Patient Power Wood Sawyer Explanati on Advance Directives, Living Will and Medical Power of Hone Operator
--- OUTSIDE RECORDS SUMMARY | 2020-06-18 11:31 | XMS REPORT | Continuity of Care Document ---
:1970 Author Organization [facility] t Address [address] [place] [address] Care Team Providers Name Role Phone Asked, No Pcp Primary Care Physician Unavailable NORTON Attending Clinician Unavailable NORTON Admitting Clinician Unavailable Payers Payer Name Policy Type Policy Effective Date Expiration Date Sour ce Number BCBSBCBS CHOICE [id number] 2019 [place] PPO/FEDERAL 00:00:00 [facility] EMPL [id number] 2019-Presen tPPO Problems Condition Condition Condition Status Onset Resolution Last Treating Co mments Source Name Details Category Date Date Treatment Clinician Date Diverticul Diverticul Disease Active 2019-09 [place] ar disease ar disease 0-06 Me thodi of of 00:00: st intestine intestine 00 with with perforatio perforatio n and n and abscess abscess Allergies, Adverse Reactions, Alerts This patient has no known allergies or adverse reactions. Family History Family Member Diagnosis Comments Start Date Stop Date Source Natural brother Diabetes [place] M ethodist Natural father Cancer [place] Me thodist Natural father Diabetes [place] [facility] thodist Natural father Diverticulosis [place] [facility] Natural mother Anxiety disorder [place] [facility] Natural mother Dementia [place] [facility]ist Social History Social Habit Start Date Stop Date Quantity Comments Source Sex Assigned At [place] [facility] Cigarettes smoked 2020-06-16 2020-06-16 [place] current (pack per 00:00:00 00:00:[address] day) - Reported Cigarette 2020-06-16 2020-06-16 [place] pack-years 00:00:00 00:00:00 [facility] Tobacco use and 2020-06-16 2020-06-16 Current user [place] exposure 00:00:00 00:00:00 [facility] Alcohol intake 2020-06-16 2020-06-16 Current drinker of [place] 00:00:00 00:00:00 alcohol (finding) [facility] Alcohol Comment 2020-06-16 2020-06-16 occasionally Tim 00:00:00 00:00:00 [facility] Smoking Status Start Date Stop Date Source Current every day smoker 2020-06-16 00:00:00 Miranda ston [facility] Medications Ordered Filled Start Stop Current Ordering Indication Dosage Frequency Signature Comments Components Source Medication Medication Date Date Medication? Clinician (SIG) Name Name linaCLOtide 2019-09 Yes 290ug QD Take 290 [place] (LINZESS) 0-07 mcg by [facility] 290 mcg 11:03: mouth st capsule 43 daily before breakfast. Patient has not taken in over a month due to COST of medication . acetaminoph 2019-09 Yes 1000mg Q24H Take 1,000 [place] en 0-07 mg by Method[facility] (TYLENOL) 11:00: mouth st 500 MG 56 daily as tablet needed for mild pain (Only has taken consistent ly for past week due to increasing pain.). LORAZepam 2019-09 2020- No .5mg Take 0.5 [place] ston (ATIVAN) 0-07 10-07 mg by [facility] 0.5 MG 10:59: 00:[address] tablet 35 :00 needed for anxiety. NON 2019-09 Yes 1{bag} QD Take 1 Bag [place] FORMULARY 0-07 by mouth Method i 10:32: daily. st 50 Calming Blends herbal tea blend. Usually takes after work to help relax. valsartan 2019-09 Yes 1{tbl} QD Take 1 [place] 160 MG 0-07 tablet by [facility] tablet 1 10:28: mouth st tablet, 55 daily. hydroCHLORO thiazide 25 MG tablet 0.5 tablet metoprolol 2019-09 Yes 50mg QD Take 50 mg [place] succinate 0-07 by mouth Method i XL 10:28: daily. st (TOPROL-XL) 55 50 mg 24 hr tablet Vital Signs Vital Name Observation Time Observation Value Comments Source Systolic blood 2020-06-18 11:14:58 115 mm[Hg] [place] [facility] pressure Diastolic blood 2020-06-18 11:14:58 72 mm[Hg] [place] [facility] pressure Heart rate 2020-06-18 11:14:58 9 /min [place] [facility] Body temperature 2020-06-18 11:14:58 37.06 Hollie Anam Robin Respiratory rate 2020-06-18 11:14:58 18 /min Anam rodney [facility] Oxygen saturation in 2020-06-18 11:14:58 98 /min Tim Linderist Arterial blood by Pulse oximetry Body height 2020-06-16 19:41:52 160 cm Tim [facility]ist Body weight 2020-06-16 19:41:52 85.503 kg Tim [facility]inderist BMI 2020-06-16 19:41:52 33.39 kg/m2 Tim Robin Procedures Procedure Date / Time Performed Performing Clinician Sourc e CBC WITH PLATELET AND 2020-06-18 04:15:00 Skyler Guillaume [facility] DIFFERENTIAL BASIC METABOLIC PANEL 2020-06-18 04:00:00 Skyler Guillaume MAGNESIUM LEVEL 2020-06-18 04:00:00 Skyler Guillaume [facility] PHOSPHORUS LEVEL 2020-06-18 04:00:00 Skyler Guillaume Met omega ESTIMATED GFR 2020-06-18 04:00:00 Skyler Guillaume Meth [facility]ist HC COMPLETE BLD COUNT 2020-06-17 04:30:00 Skyler Guillaume W/AUTO DIFF BASIC METABOLIC PANEL 2020-06-17 04:00:00 Skyler Guillaume [facility] MAGNESIUM LEVEL 2020-06-17 04:00:00 Skyler Guillaume Meth [facility]ist PHOSPHORUS LEVEL 2020-06-17 04:00:00 Skyler Guillaume ESTIMATED GFR 2020-06-17 04:00:00 Skyler Guillaume Meth odist BLOOD CULTURE, AEROBIC & 2020-06-16 21:00:00 Skyler Guillaume ANAEROBIC COVID-19 QUALITATIVE PCR 2020-06-16 18:30:00 Gregory Rudolph HC COMPLETE BLD COUNT 2020-06-16 18:03:00 Davey Reyes on [facility] W/AUTO DIFF Jetsen Kelvin PROTHROMBIN TIME WITH 2020-06-16 18:03:00 Davey Reyes on [facility] INR Jetsen Kelvin BASIC METABOLIC PANEL 2020-06-16 17:16:00 Davey Reyes on [facility] Jetsen Kelvin ESTIMATED GFR 2020-06-16 17:16:00 Tim Reyes Met hodist Jetsen Kelvin CT ABD/PELVIC EXTERNAL 2020-06-16 10:13:00 NortonMelisa Rob lyric Robin STUDY Plan of Care Planned Activity Planned Date Details Comments Source Future Scheduled 2020-04-11 INFLUENZA VACCINE [place] [facility] Test 00:00:00 [code = INFLUENZA VACCINE] Future Scheduled 2018-02-03 COLONOSCOPY SCREENING [place] [facility] Test 00:00:00 [code = COLONOSCOPY SCREENING] Future Scheduled 2018-02-03 SHINGLES VACCINES [place] [facility] Test 00:00:00 (#1) [code = SHINGLES VACCINES (#1)] Encounters Start End Encounter Admission Attending Care Care Encounter Source Date/Time Date/Time Type Type Clinicians Facility Department ID 2020-06-16 Inpatient MELISA NORTON [facility] 022 [id number] 64 [place] 00:00:[address] Results Test Description Test Time Test Comments Results Result Comments Source CBC with platelet and differential 2020-06-18 05:31:04 Test Item Value Reference Range Interpretation Comme nts WBC (test code = 60000-2) 5.72 4.50- 11.00 k/uL RBC (test code = 21821-9) 4.04 m/uL 4.4-6 L HGB (test code = 718-7) 12.5 g/dL 14-18 L HCT (test code = 4544-3) 37.0 % 41-51 L MCV (test code = 787-2) 91.6 fL 82-100 MCH (test code = 785-6) 30.9 pg 27-34 MCHC (test code = 786-4) 33.8 g/dL 31-37 RDW - SD (test code = 37142-9) 43.4 fL 37-55 MPV (test code = 46618-7) 9.5 fL 8.8-13.2 Platelet count (test code = 215 150- 400 k/uL 36000-3) Nucleated RBC (test code = 47934-3) 0.00 /100 WBC Neutrophils (test code = 08497-6) 67.3 % 39-69 Lymphocytes (test code = 71084-8) 21.9 % 25-45 L Monocytes (test code = 25251-9) 7.9 % 0-10 Eosinophils (test code = 52641-8) 2.1 % 0-5 Basophils (test code = 42264-4) 0.3 % 0-1 Immature granulocytes (test code = 0.5 % 0-1 "Immature 77497-0) granulocytes" (promyelocytes, myelocytes, metamyelocytes) Lab Interpretation (test code = Abnormal 26565-7) [place] [facility] metabolic [id number] 05:30:02 Test Item Value Reference Range Interpretation Comments Sodium (test code = 2951-2) 142 135- 148 mEq/L Potassium (test code = 2823-3) 3.7 3.5- 5.0 mEq/L Chloride (test code = 2075-0) 106 98- 112 mEq/L CO2 (test code = 2027-9) 23 24- 31 mEq/L L Anion gap (test code = 92403-6) 13@ANIO 7- 15 mEq/L BUN (test code = 3094-0) 9 mg/dL 6-20 Creatinine (test code = 2160-0) 0.96 mg/dL 0.7-1.2 Glucose (test code = 2345-7) 93 mg/dL 65-99 Calcium (test code = 33845-1) 8.7 mg/dL 8.3-10.2 Lab Interpretation (test code = Abnormal 23188-1) [place] [facility] [id number] 05:30:02 Test Item Value Reference Range Interpretation Comments Magnesium (test code = 94299-7) 2.1 mg/dL 1.6-2.6 [place] MethodistEstimated [id number] 05:30:02 Test Item Value Reference Range Interpretation Comments Estimated GFR (test >=90 mL/min/1.73 m2 [facility] Units code = 5488) InterpretationG 1 >=90 Normal or highG2 60-89 Mildly [id number] 45-59 Mildly to mode rately [id number] 30-44 Moderately to severely decreasedG4 15-29 Severely decre asedG5 <15 Kidn ey failureThe eGFR was calculated ashley rsoario the Chronic Kidney Disease Epidemiology Co llaboration (CKD-EPI) equat ion. Interpretation is based on recommendations of the National Kidney Foundation-Kidn ey Disease Outcomes Qualit y Initiative (NKF-KDOQI) pub lished in 2013. Tim RobinPhosphorus [id number] 05:30:01 Test Item Value Reference Range Interpretation Comments Phosphorus (test code = 2777-1) 2.7 mg/dL 2.4-4.5 Tim RobinCOVID-19 qualitative [id number] 01:01:18 Test Item Value Reference Range Interpretation Comments Interpretation (test Negative results do code = 8955810) not preclude 2019-nCoV infection and should not be used as the sole basis for treatment or other patient management decisions. Negative results must be combined with clinical observations, patient history, and epidemiological information. COVID-19 qualitative Not-Detected Not-Detected PCR result (test code = 85364-1) COVID-19 qualitative See link below for C ase Number: PCR (test code = PDF Lab Report [id number]) Tim RobinCT Abd/Pelvic External [id number] 21:30:14This exam was not acquired at a [facility] facility and has not been interpreted by a [facility] Provider. The exam was imported into our imaging system.Tim Robin Prothrombin time with [id number] 18:33:45 Test Item Value Reference Range Interpretation Comments Prothrombin time (test 13.6 11.5- 14.5 sec code = 5902-2) INR (test code = 1.0 [facility] 445[facility] Normalized Rati o (INR) is a therapeutic m onitoring tool for patien ts who are stable on oral anticoagulant t herapy. An INR of 2.0-3.0 is suggested for d eep vein thrombosis/pulm onary embolism. Tim Robin
== END 2020-06-16 14:50 | disposition short-term general hospital (02) ==
LOC: ER 08:45
DX: K57.20 Diverticulitis of large intestine with perforation and abscess without bleeding (principal); Z20.828 Contact with and (suspected) exposure to other viral communicable diseases; F17.210 Nicotine dependence, cigarettes, uncomplicated
CPT/HCPCS: 85025; 80048; 36415; 80076; 83690; 74177; U0003; Q9967; J2543; J7030; 96361; 96374; 99284